=== PATIENT | female | born 1965 | race Caucasian/White ===

== ENCOUNTER 2017-10-10 06:57 | Day surgery (SDC) | payer BC ==
[2017-10-10] MEDS ORDERED: PROPOFOL 200 MG INJ (07:00)
[2017-10-10] MEDS ORDERED: LIDOCAINE 2% (SDV) 5 ML INJ (07:00)
[2017-10-10] MEDS ORDERED: CLINDAMYCIN 900 MG/D5W (PMX) 50 ML IVPB (10:21)
[2017-10-10] MEDS ORDERED: ONDANSETRON 4 MG INJ ×2 (10:26→12:26)
[2017-10-10] MEDS ORDERED: DEXAMETHASONE 4 MG/ML 1 ML INJ (10:26)
[2017-10-10] MEDS ORDERED: FAMOTIDINE 20 MG INJ (10:26)
[2017-10-10] MEDS ORDERED: MIDAZOLAM 1 MG/ML 2 ML INJ (10:26)
[2017-10-10] MEDS ORDERED: KETOROLAC 30 MG INJ (11:22)
[2017-10-10] MEDS ORDERED: FENTAnyl 50 MCG/ML VIAL (11:30)
[2017-10-10] MEDS ORDERED: HYDROmorphONE 1 MG/5 ML IV SYRINGE IV ×2 (12:25→12:30)
[2017-10-10] MEDS ORDERED: OXYCODONE/ACETAMINOPHEN (5/325) TAB PO (12:30)
[2017-10-10] MEDS: HYDROmorphONE 1 MG/5 ML IV SYRINGE IV ×2 (12:39→12:49)
[2017-10-10] MEDS: ONDANSETRON 4 MG INJ IV (12:41)
[2017-10-10] MEDS: OXYCODONE/ACETAMINOPHEN (5/325) TAB PO (13:04)
== END 2017-10-10 13:57 | disposition home or self-care (01) ==
LOC: SDS 06:57
DX: D25.0 Submucous leiomyoma of uterus (principal)
CPT/HCPCS: 58558; 84703; 88305